=== PATIENT | female | born 1990 | race African-American/Black ===

== ENCOUNTER 2019-05-19 23:54 | Outpatient (CLI) | payer MEDICAID ==
[~2019-05-19] VITALS: Ht 152.4 cm; Wt 81.8 kg
[2019-05-19 23:57] VITALS: Ht 152.4 cm; Wt 81.8 kg
[2019-05-19] MEDS ORDERED: PRENAVITE1 TAB PO (23:58)
--- NOTE | 2019-05-20 00:02 | NUR ---
HEART TONES ASSESSED AT 154 BPM
--- NOTE | 2019-05-20 00:05 | NUR ---
PT LEFT ED VIA WC FOR US.
--- NOTE | 2019-05-20 00:31 | NUR ---
PT RETURNED FROM US VIA . PT PROVIDED BLANKET.
--- NOTE | 2019-05-20 01:17 | NUR ---
PT AMBULATED TO RESTROOM WITH A STEADY GAIT.
[2019-05-20 01:47] VITALS: BP 115/64
[2019-05-20 02:24] LABS: UDS - AMPHET NEGATIVE QUAL (NEGATIVE); UDS - BARB NEGATIVE QUAL (NEGATIVE); UDS - BENZO NEGATIVE QUAL (NEGATIVE); UDS - COCAINE NEGATIVE QUAL (NEGATIVE); UDS - OPIATE NEGATIVE QUAL (NEGATIVE); UDS - PCP NEGATIVE QUAL (NEGATIVE); UDS - THC POSITIVE QUAL (NEGATIVE)
== END 2019-05-20 06:38 | disposition home or self-care (01) ==
LOC: OBSVTIME → D.ER 23:54 → D.LDO 23:54 → D.ER 05-20 01:22 → OBSVTIME 05-20 01:22 → D.LD 05-20 01:22 → D.LDO 05-20 06:38
PROVIDERS: ATTEND Student in an Organized Health Care Education/Training Program
DX: O26.899 Other specified pregnancy related conditions, unspecified trimester (principal)

== ENCOUNTER → 2019-06-29 17:08 | Outpatient (CLI) | payer MEDICAID ==
[2019-05-19 23:57] VITALS: BMI 35.2
[~2019-06-29 17:08] MED LIST: PRENAVITE1 TAB PO
[2019-06-29 17:50] LABS: BASOPHILS 0.2 % (0-2); EOSINOPHILS 2.5 % (0-7); HEMATOCRIT 33.3 % (36.0-48.0); HEMOGLOBIN 10.8 g/dL (12-16); IMMATURE GRANULOCYTES 0.6 % (0-5); LYMPHOCYTES 12.9 % (15-50); MCH 29.9 pg (26.0-34.0); MCHC 32.4 g/dL (31.0-37.0); MCV 92.2 fL (80.0-100.0); MEAN PLATELET VOLUME 10.2 fL (7.4-10.4); MONOCYTES 10.9 % (2-11); NEUTROPHILS 72.9 % (40-80); PLATELET COUNT 211 10x3/uL (130-400); RBC 3.61 10x6/uL (4.00-5.40); RDW 12.9 % (11.5-14.5); WBC 10.7 10x3/uL (4.8-10.8)
[2019-06-29 18:03] LABS: APPEARANCE CLEAR (CLEAR); BACTERIA MODERATE /hpf (NEGATIVE); BILIRUBIN NEGATIVE (NEGATIVE); COLOR YELLOW (YELLOW); EPITHELIAL CELLS 0-5 /hpf (0-5); GLUCOSE NEGATIVE (NEGATIVE); KETONE NEGATIVE (NEGATIVE); MUCUS <1+ /lpf (NONE SEEN); NITRITE NEGATIVE (NEGATIVE); PROTEIN NEGATIVE (NEGATIVE); RED CELLS - URINE RARE /hpf (0-5); SPECIFIC GRAVITY 1.005 (1.005-1.020); UDS - AMPHET NEGATIVE QUAL (NEGATIVE); UDS - BARB NEGATIVE QUAL (NEGATIVE); UDS - BENZO NEGATIVE QUAL (NEGATIVE); UDS - COCAINE NEGATIVE QUAL (NEGATIVE); UDS - OPIATE NEGATIVE QUAL (NEGATIVE); UDS - PCP NEGATIVE QUAL (NEGATIVE); UDS - THC NEGATIVE QUAL (NEGATIVE); UROBILINOGEN NORMAL (NORMAL); WHITE CELLS - URINE 0-5 /hpf (NEGATIVE)
== END | disposition home or self-care (01) ==
LOC: D.LDO 17:08
PROVIDERS: ATTEND Obstetrics & Gynecology
DX: O36.8120 Decreased fetal movements, second trimester, not applicable or unspecified (principal); R10.30 Lower abdominal pain, unspecified